=== PATIENT | female | born 1950 | race American Indian/Alaskan Native ===

== ENCOUNTER 2017-03-10 09:57 | Outpatient (CLI) | payer SELFPAY | END 2017-03-10 23:59 | DX: E78.5 Hyperlipidemia, unspecified (principal); E03.9 Hypothyroidism, unspecified ==

== ENCOUNTER 2017-03-22 13:18 | Outpatient (CLI) | payer SELFPAY ==
[2017-03-22] MEDS ORDERED: ALBUTEROL NEB 2.5 MG/3 ML INH ONE (14:21)
== END 2017-03-22 13:19 | disposition home or self-care (01) ==
LOC: RT 13:18
PROVIDERS: ATTEND Family Medicine
DX: R06.09 Other forms of dyspnea (principal)
CPT/HCPCS: 94060; 94729; J7613

== ENCOUNTER 2017-03-24 11:19 | Outpatient (CLI) | payer SELFPAY | END 2017-03-24 11:20 | disposition home or self-care (01) | DX: R06.00 Dyspnea, unspecified (principal); I07.1 Rheumatic tricuspid insufficiency ==

== ENCOUNTER 2017-06-20 07:38 | Outpatient (CLI) | payer MEDICARE ==
[2017-06-20 08:48] LABS: CHOL/HDL RATIO 5.9 (<4.4); CHOLESTEROL 306 mg/dL; HDL CHOLESTEROL 52 mg/dL; LDL/HDL RATIO 4.2 (<4.4); TRIGLYCERIDES 177 mg/dL; VLDL CHOLESTEROL 35 mg/dL
== END 2017-06-20 07:39 | disposition home or self-care (01) ==
LOC: LAB 07:38
PROVIDERS: ATTEND Family Medicine
DX: E78.5 Hyperlipidemia, unspecified (principal)
CPT/HCPCS: 80061

== ENCOUNTER 2017-07-21 09:59 | Outpatient (CLI) | payer MEDICARE | END 2017-07-21 10:00 | disposition home or self-care (01) | LOC: SC 09:59 | PROVIDERS: ATTEND Internal Medicine Pulmonary Disease | DX: R06.81 Apnea, not elsewhere classified (principal); R06.83 Snoring; I27.2 Other secondary pulmonary hypertension | CPT/HCPCS: 99203; G0463; 99212 ==

== ENCOUNTER 2017-12-15 08:00 | Outpatient (CLI) | payer MEDICARE ==
[2017-12-15 20:16] LABS: ALBUMIN 4.1 g/dL (3.2-5.5); ALBUMIN/GLOBULIN RATIO 1.3 (1.0-2.2); ALKALINE PHOSPHATASE 70 IU/L (42-121); ALT ALANINE AMINOTRANSFERASE 27 IU/L (10-60); AST ASPARTATE AMINOTRANSFERASE 27 IU/L (10-42); BILIRUBIN,TOTAL 0.7 mg/dL (0.2-1.0); BUN - BLOOD UREA NITROGEN 22 mg/dL (6-20); CALCIUM 9.3 mg/dL (8.5-10.3); CARBON DIOXIDE - CO2 25 mmol/L (21-32); CHLORIDE 102 mmol/L (101-111); CHOL/HDL RATIO 3.4 (<4.4); CHOLESTEROL 134 mg/dL; CREATININE 0.9 mg/dL (0.4-1.0); GFR - MDRD 62 (>89); GLUCOSE 96 mg/dL (70-100); HDL CHOLESTEROL 40 mg/dL; LDL CHOLESTEROL,CALCULATED 60 mg/dL; LDL/HDL RATIO 1.5 (<4.4); SODIUM 138 mmol/L (135-145); TOTAL PROTEIN 7.3 g/dL (6.7-8.2); VLDL CHOLESTEROL 34 mg/dL
== END 2017-12-15 08:01 | disposition home or self-care (01) ==
LOC: LAB.WCP 08:00
PROVIDERS: ATTEND Family Medicine
DX: E78.5 Hyperlipidemia, unspecified (principal)
CPT/HCPCS: 36415; 80053; 80061; 83721

== ENCOUNTER 2018-05-18 21:24 | Observation (INO) | payer MEDICARE ==
[2018-05-18] MEDS ORDERED: MORPHINE 10 MG/ML VIAL IVP STA (21:44)
[2018-05-18] MEDS ORDERED: ASPIRIN CHEW 81 MG TABLET PO STA (21:44)
[2018-05-18 21:46] LABS: BASOPHILS # (AUTO) 0.1 10^3/uL (0.0-0.1); BASOPHILS % (AUTO) 0.8 %; EOSINOPHILS # (AUTO) 0.2 10^3/uL (0.0-0.7); EOSINOPHILS % (AUTO) 2.4 %; HGB - HEMOGLOBIN 14.5 g/dL (12.0-16.0); LYMPHOCYTES # (AUTO) 4.1 10^3/uL (1.5-3.5); LYMPHOCYTES % (AUTO) 45.2 %; MEAN CORPUSCULAR HGB CONC 32.8 g/dL (32.0-36.0); MEAN CORPUSCULAR VOLUME 91.2 fL (81.0-99.0); MEAN PLATELET VOLUME 8.7 fL (7.9-10.8); MONOCYTES # (AUTO) 0.4 10^3/uL (0.0-1.0); MONOCYTES % (AUTO) 4.9 %; NEUTROPHILS # (AUTO) 4.2 10^3/uL (1.5-6.6); NEUTROPHILS % (AUTO) 46.7 %; PLT - PLATELET COUNT 247 10^3/uL (130-450); RED BLOOD COUNT 4.85 10^6/uL (4.20-5.40); RED CELL DISTRIBUTION WIDTH 14.4 % (12.0-15.0)
[2018-05-18 22:00] LABS: ALBUMIN 4.4 g/dL (3.2-5.5); ALBUMIN/GLOBULIN RATIO 1.3 (1.0-2.2); BILIRUBIN,TOTAL 0.6 mg/dL (0.2-1.0); CALCIUM 9.4 mg/dL (8.5-10.3); CREATININE 0.7 mg/dL (0.4-1.0); TOTAL PROTEIN 7.9 g/dL (6.7-8.2)
--- NOTE | 2018-05-18 22:22 | XRAY Report ---
Procedure Date: 05/18/2018 Accession Number: [id number] / [id number] Procedure: XR - Chest 2 View X-Ray CPT Code: 69023 FULL RESULT: EXAM: CHEST RADIOGRAPHY EXAM DATE: 05/18/2018 10:04 PM. CLINICAL HISTORY: Chest pain. COMPARISON: None. TECHNIQUE: 2 views. FINDINGS: Lungs/Pleura: Eventration of the left hemidiaphragm. Mild left basilar atelectasis. No alveolar consolidation or pleural effusion seen. No pneumothorax. Mediastinum: Heart size is normal. Aortic atherosclerosis. Other: Mild scoliosis. IMPRESSION: 1. Eventration of the left hemidiaphragm with mild left basilar atelectasis. 2. No acute abnormality seen. RADIA
[2018-05-18] MEDS ORDERED: POTASSIUM CHLORIDE 20 MEQ TABLET PO STA (22:24)
[2018-05-18] MEDS ORDERED: TEMAZEPAM 15 MG CAPSULE PO PRN (22:51)
[2018-05-18] MEDS ORDERED: ACETAMINOPHEN 325 MG TABLET PO PRN (22:51)
[2018-05-18] MEDS ORDERED: PROCHLORPERAZINE 10 MG/2 ML VIAL IVP PRN (22:51)
[2018-05-18] MEDS ORDERED: SODIUM CHLORIDE FLUSH 0.9% 10 ML SYRINGE IVP PRN (22:51)
--- NOTE | 2018-05-18 22:56 | ED Physician Documentation ---
History of Present Illness - Stated complaint Stated Complaint: SOB/CHEST PX - Chief complaint Chief Complaint: Cardiac - History obtained from History obtained from: Patient - Additonal information Additional information: 67-year-old female presents the emergency department with chest pain which started this afternoon, the pain is more on her right chest but the patient points to her sternum. The patient describes a pressure with no radiation. No triggering factors or relieving factors. The patient also reports increasing dyspnea on exertion. No recent URI symptoms, peripheral edema or fevers. Symptoms are described as moderate. No other associated symptoms Review of Systems Constitutional: denies: Fever, Chills Eyes: denies: Discharge Ears: denies: Ear pain Nose: denies: Congestion Throat: denies: Sore throat Cardiac: reports: Chest pain / pressure, Palpitations. 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 - Present Medications Home Medications: Ambulatory Orders Medication Instructions Recorded Confirmed Levothyroxine [Synthroid] 150 mcg PO DAILY 05/18/18 05/18/18 Simvastatin 40 mg PO DAILY 05/18/18 05/18/18 - Allergies Allergies/Adverse Reactions: Allergies Allergy/AdvReac Type Severity Reaction Status Date / Time No Known Drug Allergies Allergy Verified 05/18/18 21:37 - Social History Does the pt smoke?: No Smoking Status: Never smoker Does the pt drink ETOH?: Yes Does the pt have substance abuse?: No PD ED PE NORMAL - General General: Alert and oriented X 3, No acute distress - HEENT HEENT: Atraumatic, PERRL, EOMI, Moist mucous membranes - Neck Neck: Supple, no meningeal sign - Cardiac Cardiac: RRR, Strong equal pulses - Respiratory Respiratory: No respiratory distress, Clear bilaterally - Abdomen Abdomen: Normal bowel sounds, Soft - Derm Derm: Normal color - Extremities Extremities: No deformity, No edema - Neuro Neuro: Alert and oriented X 3, Normal speech - Psych Psych: Normal mood Results - Vitals Vitals: Vital Signs - 24 hr 05/18/18 05/18/18 21:29 22:16 Temperature 36.4 C L Heart Rate 85 75 Respiratory 12 19 Rate Blood Pressure 179/77 H 130/72 O2 Saturation 97 94 Oxygen O2 Source Room air - EKG (time done) 21:34 Rate: Rate (enter#) Rhythm: NSR Intervals: Normal CT, QRS normal Ischemia: Non specific changes - Labs Labs: Laboratory Tests 05/18/18 05/18/18 05/18/18 21:43 21:43 21:43 WBC 9.0 RBC 4.85 Hgb 14.5 Hct 44.3 MCV 91.2 MCH 30.0 MCHC 32.8 RDW 14.4 Plt Count 247 MPV 8.7 Neut # (Auto) 4.2 Lymph # (Auto) 4.1 H [place] # (Auto) 0.4 Eos # (Auto) 0.2 Baso # (Auto) 0.1 Absolute Nucleated RBC 0.00 Nucleated RBC % 0.0 D-Dimer Sodium 138 Potassium 3.2 L Chloride 103 Carbon Dioxide 25 Anion Gap 10.0 BUN 16 Creatinine 0.7 Estimated GFR (MDRD) 83 L Glucose 105 H Calcium 9.4 Magnesium Total Bilirubin 0.6 AST 38 ALT 30 Alkaline Phosphatase 71 Troponin I < 0.04 B-Natriuretic Peptide Total Protein 7.9 Albumin 4.4 Globulin 3.5 Albumin/Globulin Ratio 1.3 Lipase 44 05/18/18 05/18/18 05/18/18 21:43 21:43 21:43 WBC RBC Hgb Hct MCV MCH MCHC RDW Plt Count MPV Neut # (Auto) Lymph # (Auto) [place] # (Auto) Eos # (Auto) Baso # (Auto) Absolute Nucleated RBC Nucleated RBC % D-Dimer 214.6 Sodium Potassium Chloride Carbon Dioxide Anion Gap BUN Creatinine Estimated GFR (MDRD) Glucose Calcium Magnesium 2.3 Total Bilirubin AST ALT Alkaline Phosphatase Troponin I B-Natriuretic Peptide 63 Total Protein Albumin Globulin Albumin/Globulin Ratio Lipase - Rads (name of study) CXR Radiology: Final report received (Impression: No acute disease) PD MEDICAL DECISION MAKING - ED course Complexity details: other (The patient's heart score places her into a moderate risk category the patient would benefit from a chest pain rule out. The case was discussed with the hospitalist Dr. Louie Who accepts the patient onto her service. The findings and plan were discussed with the patient and family who understand and agrees to plan) - Sepsis Event Vital Signs: Vital Signs - 24 hr 05/18/18 05/18/18 21:29 22:16 Temperature 36.4 C L Heart Rate 85 75 Respiratory 12 19 Rate Blood Pressure 179/77 H 130/72 O2 Saturation 97 94 Oxygen O2 Source Room air Departure - Departure Disposition: ED Place in Observation Clinical Impression: Chest pain Qualifiers: Chest pain type: unspecified Qualified Code(s): R07.9 - Chest pain, unspecified Condition: Good
[2018-05-19] MEDS: SODIUM CHLORIDE FLUSH 0.9% 10 ML SYRINGE IVP SCH ×2 (03:29→09:28)
[2018-05-19 05:40] LABS: CALCIUM 8.8 mg/dL (8.5-10.3); CREATININE 0.7 mg/dL (0.4-1.0)
[2018-05-19 05:58] LABS: CHOL/HDL RATIO 2.9 (<4.4); CHOLESTEROL 112 mg/dL; HDL CHOLESTEROL 38 mg/dL; LDL CHOLESTEROL,CALCULATED 55 mg/dL; LDL/HDL RATIO 1.4 (<4.4); VLDL CHOLESTEROL 19 mg/dL
--- NOTE | 2018-05-19 06:23 | HISTORY & PHYSICAL EXAMINATION ---
DATE OF SERVICE: 05/18/2018 Physician: Rachel Louie MD HISTORY OF PRESENT ILLNESS: This is a 67-year-old white female with a history of a heart murmur, hypothyroidism on Synthroid, and hyperlipidemia on simvastatin. She states she has a poor memory. She thinks she has had "angina" and was catheterized when she lived in [place] many years ago. She cannot remember the results but had been prescribed sublingual nitroglycerin to use p.r.n. then. The patient presents with a month history of dyspnea on exertion, and new onset of central chest pressure that is retrosternal, it comes at any time but is mostly noted during stress (over her daughter with bipolar disorder who just moved in with her and she ). She waits for it to resolve, takes nothing for it. Her PCP has ordered a "test of some kind to be done on May 26" due to this symptom. The patient is being placed in Observation for evaluation of the chest pain and dyspnea. PAST MEDICAL HISTORY: Hypothyroidism and hyperlipidemia. Possible old coronary angiogram, with results unknown. Heart murmur. FAMILY HISTORY: No inherited diseases. SOCIAL HISTORY: Nonsmoker, nondrinker. No illicit drug use. ALLERGIES: NONE. MEDICATIONS 1. Simvastatin 40 mg daily. 2. Synthroid 150 mcg daily. REVIEW OF SYSTEMS: Comprehensive review of systems was performed. And the pertinent positives are in the HPI, the rest are negative. PHYSICAL EXAMINATION GENERAL: Middle-aged white female in no distress. VITAL SIGNS: Blood pressure 179/77, then down to 130/72, pulse of 85 in sinus rhythm, afebrile, room air saturation 97%. HEENT: Unremarkable. NECK: Without JVD, carotid bruits or thyromegaly. LUNGS: Clear. HEART: S1 and S2 normal. 2/6 systolic heart murmur, heard at the base. No gallop. ABDOMEN: Soft with positive bowel sounds. Nontender. EXTREMITIES: No clubbing, cyanosis, edema. NEUROLOGIC: Intact. LABORATORY DATA: Sodium 138, potassium 3.2, normal BUN and creatinine, magnesium 2.3, normal liver function test. Normal BNP at 63. Troponin nondetectable at less than 0.04. TSH high at 7.22. INR not done. D-dimer only minimally abnormal at 214. CBC within normal limits. Chest x-ray: No active disease. EKG: Normal sinus rhythm with ventricular bigeminy, possible inferior Q-waves versus left axis deviation, flat lateral T waves and poor R-wave progression. IMPRESSION/DIAGNOSES 1. Dyspnea on exertion. 2. Chest pain. Her coronary risk factors are hypertension, hyperlipidemia and post-menopausal status. 3. Hypothyroidism. 4. Hyperlipidemia. 5. Ventricular bigeminy. 6. Abnormal EKG with possible old inferior PR and lateral ischemia with T-wave flattening. 7. Heart murmur PLAN: Place the patient in Observation on telemetry. Cycle troponins. Obtain a T4 level to assess that she has adequate thyroid replacement, given the high TSH. Followup on her EKG tomorrow. Obtain a resting Echo to evaluate the abnormal EKG and heart murmur. The patient should also undergo stress testing. (Perhaps that is the test already scheduled for May 26. Checking with her may help, since she relies on him due to her poor memory). Deep venous thrombosis prophylaxis: Lovenox. CODE STATUS: FULL CODE. ATTESTATION: The patient is expected to be discharged or transferred to another facility within 96 hours: Yes. TD: 05/19/2018 03:19 WILLIAM
[2018-05-19] MEDS ORDERED: LEVOTHYROXINE 75 MCG TABLET PO SCH (07:00)
[2018-05-19 08:15] VITALS: BP 124/68
[2018-05-19] MEDS ORDERED: ASPIRIN EC 81 MG TABLET PO SCH (09:00)
[2018-05-19] MEDS ORDERED: FAMOTIDINE 20 MG TABLET PO SCH (09:00)
[2018-05-19] MEDS ORDERED: ATORVASTATIN 10 MG TABLET PO SCH ×2 (09:00)
[2018-05-19] MEDS ORDERED: ENOXAPARIN 40 MG/0.4 ML SYRINGE SUBQ SCH (09:00)
[2018-05-19] MEDS ORDERED: POLYETHYLENE GLYCOL 3350 17 GM PACKET PO SCH (09:00)
--- NOTE | 2018-05-19 11:39 | Discharge Plan ---
Discharge Plan Disposition: 01 Home, Self Care Condition: Stable Diet: Cardiac Activity Restrictions: Activity as Tolerated Shower Restrictions: No (fall precaution) Instruction Topics: ED Chest Pain NonCardiac Additional Instructions or Follow Up instructions: You may follow up your PCP in one week, follow up your stress test as the schedule. Should your symptoms return or worsen, you may present ER or call 911 for help No Smoking: If you smoke, Please STOP! Call for help. Follow-up with: Migdalia Swenson MD [Primary Care Provider] -
--- NOTE | 2018-05-19 11:44 | DISCHARGE SUMMARY ---
Discharge Summary Discharge Date: 05/19/18 Discharging Provider: BRIDGES Primary Care Provider: Dr. Swenson Condition at Discharge: Stable Discharge Disposition: 01 Home, Self Care Discharge Facility Name: home - DIAGNOSES Admission Diagnoses: Chest pain shortness of breath pulmonary hypertension heart murmur hypothyroidism hyperlipidemia Discharge Diagnoses with Status of Each Condition: 1, Chest pain resolved. serial troponin are negative. EKG reveals ventricular Bigeminy, no ST segment abnormality. ECHO reveals EF 65-70%. pt has Stress test on May 26 2018 with her cad developer, and advise pt follow up the stress test and her cad developer. 2, shortness of breath pt report she feels better, CXR without acute findings. D-dimer is negative. pt has hx of pulmonary HTN 3, pulmonary hypertension today ECHO reveals RVSP 41 mm HG, decreased from previous, is improved, continue follow up PCP management 4, hypothyroidism stable, continue follow up PCP management 5, hyperlipidemia stable, continue follow up PCP management 6, heart murmur stable, continue follow up cad developer 7, ventricular bigeminy asymptomatic, continue follow up cad developer - HPI History of Present Illness: pt was admitted for SOB and chest pain. The serial troponin are negative. EKG reveals ventricular Bigeminy, no ST segment abnormality. ECHO reveals EF 65-70% . Pt had ECHO in Mar, 2017 which reveals RVSP over 50 mmHG, pulmonary hypertension, which decreased in today ECHO to 41 mmHG. Pt is advised to follow up PCP and cad developer. Pt has an appointment to do stress test on May 2018, and advise pt to follow up the schedule. - ALLERGIES Allergies/Adverse Reactions: Allergies Allergy/AdvReac Type Severity Reaction Status Date / Time No Known Drug Allergies Allergy Verified 05/18/18 21:37 - MEDICATIONS Home Medications: Ambulatory Orders Medication Instructions Recorded Confirmed Levothyroxine [Synthroid] 150 mcg PO DAILY 05/18/18 05/19/18 Aspirin [Aspirin EC] 81 mg PO DAILY 05/19/18 05/19/18 Atorvastatin Calcium 40 mg PO QPM 05/19/18 05/19/18 - PHYSICAL EXAM AT DISCHARGE General Appearance: positive: No acute distress, Alert. negative: Lethargic Eyes Bilateral: positive: Normal inspection, PERRL, No lid inflammation, Conjunctivae nml ENT: positive: ENT inspection nml, Pharynx nml, No signs of dehydration. negative: Purulent nasal drainage, Pharyngeal erythema, Oral lesions Neck: positive: Nml inspection, Thyroid nml, No JVD, Trachea midline. negative : Thyromegaly, Lymphadenopathy (R), Lymphadenopathy (L), Stiff neck, Swelling/ bruising, Tracheal deviation Respiratory: positive: Chest non-tender, No respiratory distress, Breath sounds nml. negative: Wheezes, Rales, Rhonchi Cardiovascular: positive: Regular rate & rhythm, No murmur, No gallop. negative : Irregularly irregular, Extrasystoles, Tachycardia, Bradycardia, JVD present, Systolic murmur, Diastolic murmur Peripheral Pulses: positive: 2+ Abdomen: positive: Non-tender, No organomegaly, Nml bowel sounds, No distention. negative: Tenderness, Guarding, Rebound Back: positive: Nml inspection. negative: CVA tenderness (R), CVA tenderness (L ) Skin: positive: Color nml, No rash, Warm, Dry. negative: Cyanosis, Diaphoresis , Pallor Extremities: positive: Non-tender, Full ROM, Nml appearance. negative: Calf tenderness, Joint swelling, Carli's sign/cords Neurologic/Psychiatric: positive: Oriented x3, Motor nml, Sensation nml, Mood/ affect nml. negative: Weakness, Sensory loss, Facial droop, Slurred/abnml speech, Depressed mood/affect - LABS Result Diagrams: 05/18/18 21:43 05/19/18 05:05 - FOLLOW UP Follow Up: You may follow up your PCP in one week, follow up your stress test and cad developer appointment as the schedule. Should your symptoms return or worsen , you may present ER or call 911 for help - TIME SPENT Time Spent in Discharge (Minutes): 45
== END 2018-05-19 12:36 | disposition home or self-care (01) ==
LOC: ED 21:24 → MS3 22:51
PROVIDERS: ADMIT Internal Medicine; ATTEND Nurse Practitioner Gerontology
DX: R07.89 Other chest pain (principal); R00.8 Other abnormalities of heart beat; R06.02 Shortness of breath; I27.20 Pulmonary hypertension, unspecified; E03.9 Hypothyroidism, unspecified; E78.5 Hyperlipidemia, unspecified; R01.1 Cardiac murmur, unspecified; I10 Essential (primary) hypertension; I25.9 Chronic ischemic heart disease, unspecified; I25.2 Old myocardial infarction; R41.3 Other amnesia; Z79.899 Other long term (current) drug therapy; Z63.79 Other stressful life events affecting family and household; Z78.0 Asymptomatic menopausal state
CPT/HCPCS: 36415; 71046; 80048; 80053; 80061; 83690; 83735; 83880; 84439; 84443; 84484; 85025; 85379; 93005; 93306; 96372; 96374; 99284; 99285; A9270; G0378; J1650; 83721; 99283

== ENCOUNTER 2018-06-11 15:20 | Outpatient (CLI) | payer MEDICARE | END 2018-06-11 15:21 | disposition critical access hospital (66) | LOC: EMS 15:20 | PROVIDERS: ATTEND Surgery | DX: R45.851 Suicidal ideations (principal) | CPT/HCPCS: A0425; A0429 ==

== ENCOUNTER 2018-06-11 15:41 | Emergency (ER) | payer MEDICARE ==
[2018-06-11 15:49] VITALS: BP 167/108
[2018-06-11] MEDS ORDERED: ALPRAZolam 0.25 MG TABLET PO STA (15:52)
--- NOTE | 2018-06-11 15:54 | ED Physician Documentation ---
PD HPI MHE - Stated complaint Stated Complaint: SI - Chief complaint Chief Complaint: MHE - History obtained from History obtained from: Patient, Family, EMS - History of Present Illness Primary symptom: Other (She has long-standing depression, has been on Lexapro in the past but not for about 5 years. Her current stressors include her daughter and her granddaughter living at home, and her daughter has mental illness, specifically bipolar disorder. She has felt hopeless at times and feeling a lot of anxiety. She went to her counselor and her doctor today. Suicidal ideation was mentioned but when asked her about that she says she is not suicidal, sometimes just feels hopeless. She has no plan. 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 - Present Medications Home Medications: Ambulatory Orders Medication Instructions Recorded Confirmed Levothyroxine [Synthroid] 150 mcg PO DAILY 05/18/18 05/19/18 Aspirin [Aspirin EC] 81 mg PO DAILY 05/19/18 05/19/18 Atorvastatin Calcium 40 mg PO QPM 05/19/18 05/19/18 Alprazolam [Xanax] 0.5 - 1 tab PO Q6H PRN #20 tablet 06/11/18 Escitalopram [Lexapro] 10 mg PO DAILY #30 tablet 06/11/18 - Allergies Allergies/Adverse Reactions: Allergies Allergy/AdvReac Type Severity Reaction Status Date / Time No Known Drug Allergies Allergy Verified 06/11/18 15:49 - Social History Does the pt smoke?: No Smoking Status: Never smoker Does the pt drink ETOH?: Yes Does the pt have substance abuse?: No PD ED PE NORMAL - Vitals Vital signs reviewed: Yes - General General: Alert and oriented X 3, No acute distress - Neuro Neuro: Alert and oriented X 3, Normal speech - Psych Psych: Normal mood, Normal affect Results - Vitals Vitals: Vital Signs - 24 hr 06/11/18 15:46 Temperature 35.6 C L Heart Rate 71 Respiratory 20 Rate Blood Pressure 167/108 H O2 Saturation 97 Oxygen O2 Source Room air PD MEDICAL DECISION MAKING - ED course ED course: Her affect is normal here without overt depression, she denies suicidal ideation. We offered potential hospitalization versus talking to the director social welfare versus medications. She has been on Lexapro and Xanax in the past and she thinks this will help. Again denies suicidal ideation currently, family agrees with the plan. - Sepsis Event Vital Signs: Vital Signs - 24 hr 06/11/18 15:46 Temperature 35.6 C L Heart Rate 71 Respiratory 20 Rate Blood Pressure 167/108 H O2 Saturation 97 Oxygen O2 Source Room air Departure - Departure Disposition: 01 Home, Self Care Clinical Impression: Depressive disorder Condition: Good Record reviewed to determine appropriate education?: Yes Instructions: ED Depression Prescriptions: Alprazolam [Xanax] 0.5 - 1 tab PO Q6H PRN #20 tablet PRN Reason: Anxiety Escitalopram [Lexapro] 10 mg PO DAILY #30 tablet Comments: Call your doctor to arrange a follow-up appointment, make the next available appointment. In the interim, return anytime if worse or if new symptoms develop. Your blood pressure was elevated today on check into the emergency department. This does not mean that you have hypertension, it is a common phenomenon to come to the emergency department and have elevated blood pressure. I recommend that you see your primary care physician within the week to have it rechecked when you are feeling better.
== END 2018-06-11 16:00 | disposition home or self-care (01) ==
LOC: ED 15:41
DX: F32.9 Major depressive disorder, single episode, unspecified (principal); R03.0 Elevated blood-pressure reading, without diagnosis of hypertension; E78.00 Pure hypercholesterolemia, unspecified; E03.9 Hypothyroidism, unspecified; Z79.82 Long term (current) use of aspirin
CPT/HCPCS: 99283; A9270

== ENCOUNTER 2018-07-09 12:35 | Outpatient (CLI) | payer MEDICARE ==
--- NOTE | 2018-07-09 14:58 | XRAY Report ---
Reason: PULMONARY HYPERTENSION Procedure Date: 07/09/2018 Accession Number: [id number] / [id number] Procedure: XR - Chest 2 View X-Ray CPT Code: 19009 FULL RESULT: EXAM: CHEST RADIOGRAPHY EXAM DATE: 07/09/2018 01:42 PM. CLINICAL HISTORY: Pulmonary hypertension. COMPARISON: CHEST 2 VIEW 05/18/2018. TECHNIQUE: 2 views. FINDINGS: Lungs/Pleura: No focal opacities evident. No pleural effusion. No pneumothorax. Normal volumes. Mediastinum: Heart and mediastinal contours are unremarkable. There is no overt enlargement of the pulmonary arteries on plain radiograph. Other: None. IMPRESSION: No acute or chronic cardiopulmonary abnormality. RADIA
== END 2018-07-09 12:36 | disposition home or self-care (01) ==
LOC: DI 12:35
PROVIDERS: ATTEND Physician Assistant
DX: I27.20 Pulmonary hypertension, unspecified (principal); R07.9 Chest pain, unspecified
CPT/HCPCS: 71046

== ENCOUNTER 2018-07-14 11:02 | Outpatient (CLI) | payer MEDICARE ==
--- NOTE | 2018-07-14 13:17 | Mammography Report ---
Reason: ABN MAMMO RT BREAST, HX BR CA Procedure Date: 07/14/2018 Accession Number: [id number] / [id number] Procedure: RAMAN - Diagnostic Dig Bilat CPT Code: FULL RESULT: EXAM: Diagnostic Dig Bilat DATE: 07/14/2018 12:03 PM CLINICAL HISTORY: Status post conservative surgery left breast with history of focal asymmetry right cc view without ultrasound correlate. TECHNIQUE: Bilateral digital CC and MLO projections COMPARISON: 06/12/2016, 04/24/2015, 04/05/2014, 11/30/2012, and 10/21/2011. FINDINGS: There are scattered fibroglandular densities. There is no significant interval change. Post therapeutic changes left breast are stable. No new dominant mass, skin thickening, architectural distortion, or suspicious microcalcifications are seen. IMPRESSION: Benign findings RECOMMENDATION: Routine screening in 1 year. BIRADS CATEGORY 2: Benign findings STANDARD QUALIFYING STATEMENTS: 1. This examination was reviewed with the aid of Computer-Aided Detection (CAD). 2. A negative or benign imaging report should not delay biopsy if clinically suspicious findings are present. Consider surgical consultation if warrented. More than 5% of cancers are not identified by imaging. 3. Dense breasts may obscure an underlying neoplasm.
== END 2018-07-14 11:03 | disposition home or self-care (01) ==
LOC: DI 11:02
PROVIDERS: ATTEND Family Medicine
DX: R92.8 Other abnormal and inconclusive findings on diagnostic imaging of breast (principal); Z85.3 Personal history of malignant neoplasm of breast
CPT/HCPCS: 77066

== ENCOUNTER 2018-12-25 12:45 | Outpatient (CLI) | payer MEDICARE | END 2018-12-25 12:46 | disposition home or self-care (01) | LOC: LAB.WCP 12:45 | PROVIDERS: ATTEND Family Medicine | DX: E03.9 Hypothyroidism, unspecified (principal) | CPT/HCPCS: 36415; 84443 ==

== ENCOUNTER 2019-09-27 09:21 | Outpatient (CLI) | payer MEDICARE, OTHER ==
--- NOTE | 2019-09-27 10:50 | Ultrasound Report ---
Reason: RT CALF PAIN Procedure Date: 09/27/2019 Accession Number: [id number] / [id number] Procedure: US - Duplex Ext Veins Right CPT Code: Final Report FULL RESULT: EXAM: RIGHT LOWER EXTREMITY VENOUS ULTRASOUND EXAM DATE: 09/27/2019 10:37 AM. CLINICAL HISTORY: Right calf pain. COMPARISON: None. TECHNIQUE: Real-time sonographic vascular imaging was performed by the plastic welder through the lower extremity utilizing both color-flow and Doppler spectral analysis. Multiple passenger service representative static images were saved for review. FINDINGS: Common Femoral Vein (CFV): Normal. CFV-GSV Junction: Normal. Profunda Femoral Vein (PFV): Normal. Femoral Vein (FV) Prox: Normal. Femoral Vein (FV) Mid: Normal. Femoral Vein (FV) Dist: Normal. Popliteal Vein: Normal. Posterior Tibial Veins: Normal. Peroneal Veins: Normal. Other: None. IMPRESSION: No evidence for deep venous thrombosis. RADIA
== END 2019-09-27 09:22 | disposition home or self-care (01) ==
LOC: DI 09:21
PROVIDERS: ATTEND Nurse Practitioner
DX: M79.661 Pain in right lower leg (principal)

== ENCOUNTER 2020-01-13 08:23 | Outpatient (CLI) | payer MEDICARE, OTHER ==
--- NOTE | 2020-01-14 09:49 | Mammography Report ---
Reason: ROUTINE MAMMO Procedure Date: 01/13/2020 Accession Number: [id number] / [id number] Procedure: MGN - Screening Mammo w/Juan A CPT Code: Final Report FULL RESULT: EXAM: Screening Mammo w/Juan A DATE: 01/13/2020 8:52 AM CLINICAL HISTORY: Screening encounter. Personal history of breast cancer status post left breast lumpectomy in 2005 with radiation therapy. TECHNIQUE: (B) - Bilateral CC and MLO views were obtained. COMPARISON: 07/14/2018. PARENCHYMAL PATTERN: (A) - The breast(s) demonstrate(s) scattered fibroglandular densities. FINDINGS: Stable postlumpectomy changes are seen in the left breast. There are no suspicious masses, calcifications, or areas of distortion. IMPRESSION: Benign findings. BI-RADS category 2. RECOMMENDATION: (ANNUAL) - Recommend routine annual screening mammography. BI-RADS CATEGORY: (2) - Benign Findings. STANDARD QUALIFYING STATEMENTS: 1. This examination was not reviewed with the aid of Computer-Aided Detection (CAD). 2. A negative or benign imaging report should not preclude biopsy if clinically suspicious findings are present. 3. Dense breasts may obscure an underlying neoplasm. 4. This examination was reviewed with the aid of 3D breast imaging (tomosynthesis).
== END 2020-01-13 08:24 | disposition home or self-care (01) ==
LOC: DI.N 08:23
DX: Z12.31 Encounter for screening mammogram for malignant neoplasm of breast (principal); Z85.3 Personal history of malignant neoplasm of breast
CPT/HCPCS: 77063; 77067

== ENCOUNTER 2021-01-08 10:20 | Outpatient (CLI) | payer MEDICARE, OTHER ==
--- NOTE | 2021-01-09 11:08 | Mammography Report ---
BILATERAL DIGITAL SCREENING MAMMOGRAM 3D/2D: 01/08/2021 CLINICAL: Routine screening. Personal history of left breast cancer. Comparison is made to exams dated: 01/13/2020 mammogram, 07/14/2018 mammogram - [facility], 06/12/2016 ultrasound, 06/12/2016 mammogram, 04/24/2015 mammogram, and 04/05/2014 mammogram - [facility] [place]. There are scattered fibroglandular elements in both breasts. There are benign post operative findings in the left breast. No significant masses, calcifications, or other findings are seen in either breast. There has been no significant interval change. IMPRESSION: BENIGN There is no mammographic evidence of malignancy. A 1 year screening mammogram is recommended. This exam was interpreted at Station ID: [id number]. NOTE: For mammograms, a report in lay terms will be sent to the patient. Approximately 15% of breast malignancies will not be visualized mammographically. In the management of a palpable breast mass, a negative mammogram must not discourage biopsy of a clinically suspicious lesion. Electronically Signed By: Néstor Elizondo M.D. [facility] [place]01/08/2021 17:46:54 ACR BI-RADS Category 2: Benign Finding(s) 3342F PARENCHYMAL PATTERN: (A) - The breast(s) demonstrate(s) scattered fibroglandular densities. BI-RADS CATEGORY: (2) - 2 RECOMMENDATION: (ANNUAL) - Recommend routine annual screening mammography. [id number] 1 year screening LATERALITY: (B)
== END 2021-01-08 10:21 | disposition home or self-care (01) ==
LOC: DI.N 10:20
PROVIDERS: ATTEND Physician Assistant
DX: Z12.31 Encounter for screening mammogram for malignant neoplasm of breast (principal); Z08 Encounter for follow-up examination after completed treatment for malignant neoplasm; Z85.3 Personal history of malignant neoplasm of breast

== ENCOUNTER 2021-12-10 12:09 | Outpatient (CLI) | payer MEDICARE ==
[2021-12-10 12:20] LABS: BASOPHILS % (AUTO) 0.7 %; EOSINOPHILS # (AUTO) 0.2 10^3/uL (0.0-0.7); EOSINOPHILS % (AUTO) 2.7 %; HCT - HEMATOCRIT 41.7 % (37.0-47.0); HGB - HEMOGLOBIN 13.7 g/dL (12.0-16.0); LYMPHOCYTES % (AUTO) 50.6 %; MEAN CORPUSCULAR HEMOGLOBIN 30.2 pg (27.0-31.0); MEAN CORPUSCULAR HGB CONC 32.9 g/dL (32.0-36.0); MEAN CORPUSCULAR VOLUME 92.1 fL (81.0-99.0); MEAN PLATELET VOLUME 9.8 fL (7.9-10.8); MONOCYTES # (AUTO) 0.4 10^3/uL (0.0-1.0); MONOCYTES % (AUTO) 6.3 %; NEUTROPHILS # (AUTO) 2.3 10^3/uL (1.5-6.6); NEUTROPHILS % (AUTO) 39.5 %; PLT - PLATELET COUNT 236 10^3/uL (130-450); RED BLOOD COUNT 4.53 10^6/uL (4.20-5.40); RED CELL DISTRIBUTION WIDTH 13.3 % (12.0-15.0); WHITE BLOOD COUNT 5.9 x10^3/uL (4.8-10.8)
[2021-12-10 12:41] LABS: ALBUMIN 4.3 g/dL (3.2-5.5); ALBUMIN/GLOBULIN RATIO 1.5 (1.0-2.2); ALKALINE PHOSPHATASE 57 IU/L (42-121); ALT ALANINE AMINOTRANSFERASE 23 IU/L (10-60); AST ASPARTATE AMINOTRANSFERASE 25 IU/L (10-42); BILIRUBIN,TOTAL 0.8 mg/dL (0.2-1.0); BUN - BLOOD UREA NITROGEN 10 mg/dL (6-20); CARBON DIOXIDE - CO2 26 mmol/L (21-32); CHLORIDE 102 mmol/L (101-111); CREATININE 0.9 mg/dL (0.4-1.0); CRP - C-REACTIVE PROTEIN < 1.0 mg/dL (0-1.0); GFR - MDRD 62 (>89); GLUCOSE 112 mg/dL (70-100); SODIUM 137 mmol/L (135-145); TOTAL PROTEIN 7.2 g/dL (6.7-8.2); URIC ACID 5.9 mg/dL (2.6-7.2)
== END 2021-12-10 12:10 | disposition home or self-care (01) ==
LOC: LAB 12:09
PROVIDERS: ATTEND Physician Assistant
DX: M25.472 Effusion, left ankle (principal)
CPT/HCPCS: 36415; 80053; 84550; 85025; 85651; 86140

== ENCOUNTER 2021-12-20 13:36 | Outpatient (CLI) | payer MEDICARE, OTHER ==
--- NOTE | 2021-12-21 10:40 | XRAY Report ---
PROCEDURE: Foot 3 View LT INDICATIONS: LEFT FOOT PAIN TECHNIQUE: 3 views of the foot were acquired. COMPARISON: None FINDINGS: Bones: No fractures or dislocations. Osteoarthritic changes are noted throughout left foot and ankle joints. No suspicious bony lesions. Small plantar and dorsal calcaneal enthesophytes are seen. Soft tissues: No tibiotalar joint effusion. Achilles tendon appears normal. IMPRESSION: Left foot and ankle joint osteoarthritis. No fracture or dislocation. Small calcaneal enthesophytes. Reviewed by: Guilherme Bryant MD on 12/21/2021 10:38 AM [facility] Approved by: Guilherme Bryant MD on 12/21/2021 10:38 AM [facility] Station ID: [id number]
== END 2021-12-20 13:37 | disposition home or self-care (01) ==
LOC: DI 13:36
PROVIDERS: ATTEND Physician Assistant
DX: M19.072 Primary osteoarthritis, left ankle and foot (principal); M77.32 Calcaneal spur, left foot

== ENCOUNTER 2022-01-17 08:57 | Outpatient (CLI) | payer MEDICARE, OTHER ==
--- NOTE | 2022-01-17 21:52 | MRI Report ---
PROCEDURE: Foot LT W/O INDICATIONS: L FOOT PAIN, FOOT COLLAPSING TECHNIQUE: Noncontrast sagittal T1 spin echo and T2 fast spin echo with fat saturation, long-axis T1 spin echo a nd T2 fast spin echo with fat saturation, short-axis proton density fast spin echo and T2 fast spin e cho with fat saturation through the forefoot. COMPARISON: None. FINDINGS: Image quality: Excellent. Bones and joints: No bone marrow contusions or metatarsal stress fractures. [id number] osteoar thritic changes are noted throughout visualized left foot joints more prominent involving talonavicul ar joint and calcaneocuboid joint. No suspicious intraosseous lesion. Soft tissues: The visualized plantar foot muscles demonstrate normal signal and bulk. Visualized po rtion of posterior tibialis tendon appears to be thickened with heterogeneous intrasubstance T2 hyper intense signal at the level of distal talus/talonavicular joint. The visualized portion of flexor dig itorum longus and flexor hallucis longus tendons are grossly intact. Visualized flexor and peroneus t endons appear intact, without tenosynovitis. Mild soft tissue swelling and edema over medial and dors al aspect of hindfoot is seen. Principal Lisfranc ligament is intact. The base superficial fibers of the and deltoid ligament is intact. Attenuated appearing sprain ligament complex with heterogeneous i ntrasubstance signal is seen suggestive of sprain/low to moderate grade intrasubstance partial thickn ess tear. IMPRESSION: 1. 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 No fracture or dislocation. No suspicious intraosseous lesion. Nonspe cific mild medial and dorsal hindfoot soft tissue swelling. 2. Suggestion of tendinosis and low grade partial-thickness tear involving visualized portion of the posterior tibialis tendon at the level of distal talus/talonavicular joint. Rest of the tendons are i ntact. 3. Suggestion of spraining/low to moderate grade partial thickness tear involving spring ligament com plex is seen. The base superficial portion of the deltoid ligament is intact. Lisfranc ligament is in tact. Reviewed by: Guilherme Bryant MD on 01/17/2022 9:50 PM PST Approved by: Guilherme Bryant MD on 01/17/2022 9:50 PM PST Station ID: [id number]
== END 2022-01-17 08:58 | disposition home or self-care (01) ==
LOC: DI 08:57
PROVIDERS: ATTEND Podiatrist
DX: M19.072 Primary osteoarthritis, left ankle and foot (principal); R93.6 Abnormal findings on diagnostic imaging of limbs; R93.89 Abnormal findings on diagnostic imaging of other specified body structures

== ENCOUNTER 2022-08-02 09:24 | Outpatient (CLI) | payer MEDICARE, OTHER ==
[2022-08-02 09:54] LABS: ALBUMIN 4.3 g/dL (3.2-5.5); ALBUMIN/GLOBULIN RATIO 1.4 (1.0-2.2); ALKALINE PHOSPHATASE 58 IU/L (42-121); ALT ALANINE AMINOTRANSFERASE 20 IU/L (10-60); AST ASPARTATE AMINOTRANSFERASE 23 IU/L (10-42); BILIRUBIN,TOTAL 0.8 mg/dL (0.2-1.0); BUN - BLOOD UREA NITROGEN 17 mg/dL (6-20); CALCIUM 9.2 mg/dL (8.5-10.3); CARBON DIOXIDE - CO2 26 mmol/L (21-32); CHLORIDE 104 mmol/L (101-111); CHOL/HDL RATIO 4.7 (<4.4); CHOLESTEROL 274 mg/dL; CREATININE 0.8 mg/dL (0.4-1.0); GFR - MDRD 71 (>89); GLUCOSE 104 mg/dL (70-100); HDL CHOLESTEROL 58 mg/dL; LDL CHOLESTEROL,CALCULATED 184 mg/dL; LDL/HDL RATIO 3.2 (<4.4); SODIUM 139 mmol/L (135-145); TOTAL PROTEIN 7.4 g/dL (6.7-8.2); TRIGLYCERIDES 158 mg/dL; VLDL CHOLESTEROL 32 mg/dL
[2022-08-02 10:06] LABS: THYROID STIMULATING HORMONE 27.19 uIU/mL (0.34-5.60)
[2022-08-02 14:26] LABS: FREE T4 (FREE THYROXINE) 0.85 ng/dL (0.58-1.64)
== END 2022-08-02 09:25 | disposition home or self-care (01) ==
LOC: LAB 09:24
PROVIDERS: ATTEND Physician Assistant
DX: E03.9 Hypothyroidism, unspecified (principal); E78.5 Hyperlipidemia, unspecified
CPT/HCPCS: 36415; 80053; 80061; 83721; 84439; 84443

== ENCOUNTER 2023-07-08 10:11 | Outpatient (CLI) | payer MEDICARE, OTHER ==
--- NOTE | 2023-07-08 11:38 | XRAY Report ---
PROCEDURE: Chest 2 View X-Ray INDICATIONS: DYSPNEA TECHNIQUE: 2 views of the chest were acquired. COMPARISON: None. FINDINGS: Surgical changes and devices: None. Lungs and pleura: Asymmetric left hemidiaphragm elevation. Horizontal linear opacity at the lateral left lower lung, likely platelike atelectasis. No significant effusion or pneumothorax. Mediastinum: Mediastinal contours appear normal. Heart size is normal. Bones and chest wall: No suspicious bone lesions. Degenerative thoracolumbar scoliosis. IMPRESSION: 1. Asymmetric left hemidiaphragm elevation with associated probable atelectasis or scarring. 2. No acute process. Reviewed by: Emperatriz Rebolledo MD on 07/08/2023 11:37 AM PDT Approved by: Emperatriz Rebolledo MD on 07/08/2023 11:37 AM PDT Station ID: [id number]
== END 2023-07-08 10:12 | disposition home or self-care (01) ==
LOC: DI 10:11
PROVIDERS: ATTEND Nurse Practitioner Family
DX: R06.09 Other forms of dyspnea (principal)

== ENCOUNTER 2024-04-24 16:22 | Emergency (ER) | payer MEDICARE, OTHER ==
[2024-04-24 16:46] LABS: BASOPHILS # (AUTO) 0.1 10^3/uL (0.0-0.1); BASOPHILS % (AUTO) 0.6 %; EOSINOPHILS # (AUTO) 0.2 10^3/uL (0.0-0.7); EOSINOPHILS % (AUTO) 2.4 %; HCT - HEMATOCRIT 42.8 % (37.0-47.0); HGB - HEMOGLOBIN 14.1 g/dL (12.0-16.0); LYMPHOCYTES # (AUTO) 3.9 10^3/uL (1.5-3.5); LYMPHOCYTES % (AUTO) 42.8 %; MEAN CORPUSCULAR HEMOGLOBIN 29.8 pg (27.0-31.0); MEAN CORPUSCULAR HGB CONC 32.9 g/dL (32.0-36.0); MEAN CORPUSCULAR VOLUME 90.5 fL (81.0-99.0); MEAN PLATELET VOLUME 10.3 fL (7.9-10.8); MONOCYTES # (AUTO) 0.5 10^3/uL (0.0-1.0); NEUTROPHILS # (AUTO) 4.4 10^3/uL (1.5-6.6); PLT - PLATELET COUNT 260 10^3/uL (130-450); RED BLOOD COUNT 4.73 10^6/uL (4.20-5.40); RED CELL DISTRIBUTION WIDTH 13.2 % (12.0-15.0)
--- NOTE | 2024-04-24 17:03 | XRAY Report ---
PROCEDURE: Chest 1V INDICATIONS: Chest Pain TECHNIQUE: One view of the chest was acquired. COMPARISON: 07/08/2023, 08/04/2023 FINDINGS: Surgical changes and devices: None. Lungs and pleura: An incomplete inspiratory result is noted, with low lung volumes and crowding of t he vascular markings. No focal infiltrates are seen. No large pneumothorax or large pleural effusion can be seen. Elevation of the left hemidiaphragm is seen, which is similar to the prior. Mediastinum: The aorta is prominent and tortuous. The cardiac contours are within normal limits. Bones and chest wall: No suspicious bony lesions. Overlying soft tissues appear unremarkable. IMPRESSION: Low lung volumes, without an acute cardiopulmonary abnormality seen. There is stable elevation of the left hemidiaphragm. Reviewed by: Bart Panda MD on 04/24/2024 4:02 PM [place] Approved by: Bart Panda MD on 04/24/2024 4:02 PM [place] Station ID: [id number]
[2024-04-24 17:06] LABS: TROPONIN I HIGH SENSITIVITY 3.7 ng/L (2.3-14.8)
--- NOTE | 2024-04-24 17:23 | ED Physician Documentation ---
PD HPI CHEST PAIN - Stated complaint Stated Complaint: CHEST PX,SOA - Chief complaint Chief Complaint: Cardiac - History obtained from History obtained from: Patient, Family - History of Present Illness Timing - onset: Today Timing - onset during: Rest Timing - duration: Hours (1) Timing - details: Abrupt onset Pain level max: 3 Pain level now: 3 Quality: No: Sharp, Tearing Location: No: Substernal, Left chest Radiation: No: Jaw, Neck, Back, Abdominal, Left upper extremity, Right upper extremity Worsened by: No: Exertion, Inspiration, Eating, Movement, Palpation Associated symptoms: Feeling faint / dizzy. No: Shortness of air, Diaphoresis, Nausea, Vomiting, General Weakness, Palpitations, Cough - Additional information Additional information: Patient is a 73-year-old female who presents to the emergency department feeling pressure in her right chest and right neck. Started about an hour prior to ar rival. Nonradiating. Nothing seems to make it better or worse. She states that she felt like she could be short of breath, but did not feel significantly short of breath. No recent travel. No leg swelling. No history of blood clots. She states that she feels like she could be dehydrated. She states the symptoms have mostly resolved now. She still feels mildly dizzy. She feels mostly lightheaded, not like things are spinning. No cardiac history. Has not had similar symptoms previously. No respiratory issues in the past. 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 : None HEENT: None Psych: None Musculoskeletal: None Derm: None - Past Surgical History Past Surgical History: Yes General: Other /[employer]ER: Hysterectomy - Present Medications Home Medications: Ambulatory Orders Medication Instructions Recorded Confirmed Levothyroxine [Synthroid] 125 mcg PO QDAC 04/24/24 04/24/24 - Allergies Allergies/Adverse Reactions: Allergies Allergy/AdvReac Type Severity Reaction Status Date / Time No Known Drug Allergies Allergy Verified 04/24/24 16:27 - Social History Does the pt smoke?: No Smoking Status: Former smoker Does the pt drink ETOH?: Yes Does the pt have substance abuse?: No - Immunizations Immunizations are current?: Yes PD ED PE NORMAL - Vitals Vital signs reviewed: Yes - General General: Alert and oriented X 3, No acute distress - HEENT HEENT: PERRL, Moist mucous membranes - Neck Neck: Supple, no meningeal sign - Cardiac Cardiac: RRR, No murmur, Strong equal pulses - Respiratory Respiratory: No respiratory distress, Clear bilaterally - Abdomen Abdomen: Soft, Non tender, Non distended - Derm Derm: Warm and dry - Extremities Extremities: No edema, No calf tenderness / cord - Neuro Neuro: Alert and oriented X 3 Results - Vitals Vitals: Vital Signs - 24 hr 04/24/24 04/24/24 04/24/24 16:27 16:54 17:02 Temperature 36.6 C Heart Rate 70 66 66 Respiratory 20 18 18 Rate Blood Pressure 187/96 H 151/96 H 150/75 H O2 Saturation 97 93 94 04/24/24 04/24/24 04/24/24 17:30 18:00 18:30 Temperature Heart Rate 78 65 59 L Respiratory 18 18 14 Rate Blood Pressure 145/83 H 153/95 H 155/94 H O2 Saturation 100 98 99 Oxygen O2 Source Room air - EKG (time done) 1641 EKG releavant findings:: EKG personally interpreted by author of this note. Relevant findings are: Rate: Rate (enter#) (62) Rhythm: NSR [place]: Normal QRS: LVH Ischemia: Normal ST segments, Q waves (II, III, aVF) - Labs Labs: Laboratory Tests 04/24/24 04/24/24 16:40 16:40 WBC 9.0 RBC 4.73 Hgb 14.1 Hct 42.8 MCV 90.5 MCH 29.8 MCHC 32.9 RDW 13.2 Plt Count 260 MPV 10.3 Neut # (Auto) 4.4 Lymph # (Auto) 3.9 H Stephens # (Auto) 0.5 Eos # (Auto) 0.2 Baso # (Auto) 0.1 Absolute Nucleated RBC 0.00 Nucleated RBC % 0.0 Sodium 140 Potassium 3.8 Chloride 107 Carbon Dioxide 26 Anion Gap 7.0 BUN 14 Creatinine 0.8 Estimated GFR (MDRD) 70 L Glucose 107 H Calcium 9.6 Total Bilirubin 0.4 AST 24 ALT 19 Alkaline Phosphatase 76 Troponin I High Sens 3.7 Total Protein 7.1 Albumin 4.4 Globulin 2.7 Albumin/Globulin Ratio 1.6 Lipase 29 - Rads (name of study) cxr Relevant Findings:: Final report received, See rad report PD Medical Decision Making - ED course Complexity details: reviewed results, re-evaluated patient, considered differential (No ST elevation NV, no aortic dissection, no PE, no tension pneumothorax, no aortic aneurysm), d/w patient, d/w 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 No acute findings on EKG. Negative high sensitive troponin on first testing. Negative chest x-ray. No risk factors for PE. No pleuritic chest pain. Symptoms resolved in the emergency department. Feels better after IV fluids as well. No evidence of aortic dissection, PE, UA. A second troponin is ordered, if this is negative, plan will be to discharge her home. Patient can follow-up with her PCP for cardiac stress test. Patient is signed out to the oncoming emergency department physician. This document was made in part using voice recognition software. While efforts are made to proofread this document, sound alike and grammatical errors may occur. Departure - Departure Clinical Impression: Chest pain Qualifiers: Chest pain type: unspecified Qualified Code(s): R07.9 - Chest pain, unspecified Condition: Good Instructions: ED Chest Pain Atypical Unkn Cause Follow-Up: Nakita Majano ARNP [Primary Care Provider] - Comments: The cause of your symptoms is unclear today. Please follow-up with your doctor for further care. Please return if you worsen. It is recommended that you have a cardiac stress test with your doctor, this can be scheduled as an outpatient. You can start on a baby aspirin, 81 mg, daily until seen by your doctor. Your heart tests are normal tonight. Forms: PCP List
[2024-04-24 17:35] LABS: ALBUMIN 4.4 g/dL (3.2-5.5); ALBUMIN/GLOBULIN RATIO 1.6 (1.0-2.2); BILIRUBIN,TOTAL 0.4 mg/dL (0.2-1.0); CALCIUM 9.6 mg/dL (8.5-10.3); CREATININE 0.8 mg/dL (0.6-1.3); POTASSIUM 3.8 mmol/L (3.5-4.5); TOTAL PROTEIN 7.1 g/dL (6.4-8.9)
[2024-04-24] MEDS: SODIUM CHLORIDE 0.9% 1,000 ML IV STA (18:47)
[2024-04-24 19:36] VITALS: O2SAT 97
[2024-04-24 20:40] VITALS: BP 166/100
--- NOTE | 2024-04-24 20:40 | ED Physician Documentation ---
ED Addendum - Addendum Addendum: 04/24/24 20:39 Patient received a signout from outgoing physician, please see their do cumentation for further detail. Patient received with repeat troponin pending. Is downtrending from first. Will discharge for follow-up with primary care. Clear return precautions given.
== END 2024-04-24 20:45 | disposition home or self-care (01) ==
LOC: ED 16:22
DX: R07.89 Other chest pain (principal); Z87.891 Personal history of nicotine dependence
CPT/HCPCS: 36415; 80053; 83690; 84484; 85025; 93005; 99283; 99284